=== PATIENT | male | born 1960 | race Two or more races ===

== ENCOUNTER 2024-08-27 06:51 | Outpatient (CLI) | payer OTHER ==
[2024-08-27 07:48] LABS: Hematocrit 47.0 % (41.0-53.0); Hemoglobin 16.4 g/dL (13.5-17.5); Mean Corpuscular Hemoglobin 30.5 pg (28.0-32.0); Mean Corpuscular Volume 87.6 fL (80.0-100.0); Nucleated Red Blood Cells % 0.3 %
[2024-08-27 08:16] LABS: Alanine Aminotransferase 17 U/L (7-40); Albumin 4.6 g/dL (3.2-4.8); Alkaline Phosphatase 67 U/L (46-116); Anion Gap 8 (5-15); BUN/Creatinine Ratio 11.4 (10.0-20.0); Bilirubin, Direct 0.2 mg/dL (<0.3); Blood Urea Nitrogen 13 mg/dL (9-23); Calcium 10.0 mg/dL (8.7-10.4); Carbon Dioxide 28 mmol/L (20-31); Cholesterol 114 mg/dL (< 200); Glucose 97 mg/dL (74-106); HDL Cholesterol 44 mg/dL (40-59); Magnesium 2.0 mg/dL (1.6-2.6); Potassium 4.0 mmol/L (3.5-5.1); Sodium 144 mmol/L (136-145); Total Protein 7.0 g/dL (5.7-8.2); Triglycerides 85 mg/dL (< 150)
[2024-08-27 08:17] LABS: Bilirubin, Total 0.8 mg/dL (0.2-1.0)
[2024-08-27 08:20] LABS: Chloride 108 mmol/L (98-107)
[2024-08-27 08:39] LABS: Iron 109.0 ug/dL (65-175)
[2024-08-27 08:42] LABS: Total Iron Binding Capacity 308.0 ug/dL (250-425)
[2024-08-27 08:44] LABS: Uric Acid 7.4 mg/dL (3.7-9.2)
== END 2024-08-27 17:00 | disposition home or self-care (01) ==
LOC: LAB 06:51
PROVIDERS: ATTEND Internal Medicine
DX: E78.49 Other hyperlipidemia (principal); E61.2 Magnesium deficiency; E55.9 Vitamin D deficiency, unspecified; E79.0 Hyperuricemia without signs of inflammatory arthritis and tophaceous disease; D51.9 Vitamin B12 deficiency anemia, unspecified; R82.998 Other abnormal findings in urine; R82.90 Unspecified abnormal findings in urine; R73.09 Other abnormal glucose; R68.89 Other general symptoms and signs; R94.6 Abnormal results of thyroid function studies
CPT/HCPCS: 36415; 80053; 80061; 80069; 80076; 83036; 83540; 83550; 83735; 84153; 84443; 84550; 85025; 87086